=== PATIENT | female | born 1985 | race Asian ===

== ENCOUNTER 2018-02-04 18:00 | Inpatient (IN) | payer BC ==
[~2018-02-04] VITALS: Ht 163 cm; Wt 60.8 kg
[2018-02-04] MEDS ORDERED: OXYTOCIN/0.9 % SODIUM CHLORIDE 1,000 ML IV SCH (19:27)
[2018-02-04] MEDS ORDERED: LR 1,000 ML IV ONE (19:27)
[2018-02-04] MEDS ORDERED: TERBUTALINE SULFATE 1 MG/ML VIAL SUBCUT ONE (19:30)
[2018-02-04] MEDS ORDERED: NALBUPHINE HCL 10 MG/ML AMP IVP PRN (19:30)
[2018-02-04] MEDS ORDERED: MISOPROSTOL 100 MCG TABLET (CYTOTEC) PO PRN (19:30)
[2018-02-04 20:39] LABS: BASOPHILS % (AUTO) 0.1 % (0.0-2.0); EOSINOPHILS # (AUTO) 0.1 K/uL (0.0-0.4); EOSINOPHILS % (AUTO) 0.7 % (0.0-4.0); HEMATOCRIT 29.8 % (36-48); HEMOGLOBIN 10.9 g/dL (12.0-16.0); LYMPHOCYTES # (AUTO) 1.5 K/uL (1.0-5.5); LYMPHOCYTES % (AUTO) 19.9 % (20.5-51.5); MEAN CORPUSCULAR HEMOGLOBIN 34 pg (27-31); MEAN CORPUSCULAR HGB CONC 37 % (32-36); MEAN CORPUSCULAR VOLUME 92 fL (79.0-98.0); MONOCYTES # (AUTO) 0.3 K/uL (0.0-1.0); NEUTROPHILS # (AUTO) 5.7 K/uL (1.8-7.7); NEUTROPHILS % (AUTO) 75.3 % (40.0-70.0); PLATELET COUNT (AUTO) 161 K/uL (130-430); RED BLOOD CELL COUNT(AUTO) 3.24 MIL/uL (4.2-6.2); RED CELL DISTRIBUTION WIDTH 12.4 % (9.0-15.0); WHITE BLOOD COUNT (AUTO) 7.6 K/uL (4.8-10.8)
[2018-02-04 21:25] VITALS: BP_SYST 107
[2018-02-04] MEDS ORDERED: fentaNYL CITRATE/PF 100 MCG/2 ML AMP ONE ×2 (21:54→22:26)
[2018-02-04] MEDS ORDERED: ROPIVACAINE 0.2% 100 ML ONE (21:55)
[2018-02-04] MEDS: LR 1,000 ML IV SCH ×2 (22:00→22:44)
[2018-02-04] MEDS ORDERED: LR 500 ML IV ONE (22:36)
[2018-02-04] MEDS ORDERED: ePHEDrine sulfate 50 MG/ML VIAL IVP PRN (22:45)
[2018-02-04] MEDS ORDERED: FENT2mCg/mL-ROPIVA0.2%/NS EPID 150 ML EP SCH (22:45)
[2018-02-04] MEDS ORDERED: fentaNYL CITRATE/PF 100 MCG/2 ML AMP EP ONE (22:45)
[2018-02-05] MEDS: IBUPROFEN 600 MG TABLET PO PRN ×2 (06:10→12:10)
[2018-02-05] MEDS ORDERED: OXYCODONE/ACETAMINOPHEN 5-325 TABLET PO PRN ×2 (07:15)
[2018-02-06] MEDS: IBUPROFEN 600 MG TABLET PO PRN ×2 (06:00)
== END 2018-02-06 11:55 | disposition home or self-care (01) | DRG 775 ==
LOC: SPU 18:00
PROVIDERS: ADMIT Obstetrics & Gynecology; ATTEND Obstetrics & Gynecology
PROC: 10E0XZZ Delivery of Products of Conception, External Approach (ICD-10-PCS; principal; 2018-02-05)
PROC: 0HQ9XZZ Repair Perineum Skin, External Approach (ICD-10-PCS; 2018-02-05)
PROC: 3E0R3BZ Introduction of Anesthetic Agent into Spinal Canal, Percutaneous Approach (ICD-10-PCS; 2018-02-05)
PROC: 00HU33Z Insertion of Infusion Device into Spinal Canal, Percutaneous Approach (ICD-10-PCS; 2018-02-05)
DX: O69.81X0 Labor and delivery complicated by cord around neck, without compression, not applicable or unspecified (principal); Z3A.40 40 weeks gestation of pregnancy; Z37.0 Single live birth; O70.9 Perineal laceration during delivery, unspecified
CPT/HCPCS: 36415; 85025; 86886; 86900; 86901; 94760; J2590; J2795; J3010